=== PATIENT | male | born 1985 | race Caucasian/White ===

== ENCOUNTER 2017-01-28 10:27 | Emergency (ER) | payer OTHER ==
[~2017-01-28] VITALS: Ht 180.3 cm; Wt 74.8 kg
[~2017-01-28 10:27] MED LIST: ACYCLOVIR 400400 MG PO
[2017-01-28] MEDS ORDERED: KEFLEX500 MG PO (10:54)
== END 2017-01-28 11:47 | disposition home or self-care (01) ==
LOC: ER 10:27
DX: S61.512A Laceration without foreign body of left wrist, initial encounter (principal); Z91.018 Allergy to other foods; V28.4XXA Motorcycle driver injured in noncollision transport accident in traffic accident, initial encounter; Y93.89 Activity, other specified; Y92.89 Other specified places as the place of occurrence of the external cause; Y99.8 Other external cause status

== ENCOUNTER 2017-07-09 07:40 | Emergency (ER) | payer OTHER ==
[~2017-07-09] VITALS: Ht 180.3 cm; Wt 76.2 kg
[~2017-07-09 07:40] MED LIST changes: +KEFLEX500 MG PO
[2017-07-09 07:56] VITALS: BP 126/70
[2017-07-09] MEDS ORDERED: MOBIC15 MG PO (08:52)
== END 2017-07-09 09:12 | disposition home or self-care (01) ==
LOC: ER 07:40
DX: S46.912A Strain of unspecified muscle, fascia and tendon at shoulder and upper arm level, left arm, initial encounter (principal); Z91.018 Allergy to other foods; W18.39XA Other fall on same level, initial encounter; Y93.23 Activity, snow (alpine) (downhill) skiing, snowboarding, sledding, tobogganing and snow tubing; Y92.89 Other specified places as the place of occurrence of the external cause; Y99.8 Other external cause status